=== PATIENT | male | born 1970 | race African-American/Black ===

== ENCOUNTER 2018-11-02 20:51 | Inpatient (IN) | payer OTHER ==
[2018-11-02 21:26] LABS: Urine Blood NEGATIVE (NEG); Urine Glucose NEGATIVE (NEG); Urine Protein NEGATIVE (NEG); Urine pH 8.5 (5.0-7.0)
[2018-11-02] MEDS ORDERED: LIDOCAINE VISCOUS 2% SOLN 15 ML UDC ONE (21:30)
[2018-11-02] MEDS ORDERED: MEPERIDINE HCL 25 MG/0.5 ML ONE ×2 (21:30→23:49)
[2018-11-02] MEDS ORDERED: MAGNE/ALUM HYDROXD 30 ML UCUP ONE (21:30)
[2018-11-02] MEDS ORDERED: ONDANSETRON 4 MG/2 ML VIAL ONE (21:30)
[2018-11-02 21:33] LABS: Absolute Lymphocytes (CBC) 1.2 K/uL (0.7-4.9); Basophils % 0.2 % (0-1.3); Lymphocytes % 13.1 % (15.3-44.8); MPV 9.6 fL (7.6-11.3); RBC Red Blood Cell Count 4.92 M/uL (4.33-5.43)
--- NOTE | 2018-11-02 21:48 | RAD REPORT ---
EXAM DESCRIPTION: RAD - Chest Single View - 11/02/2018 9:26 pm CLINICAL HISTORY: Chest pain, abdominal pain COMPARISON: None. TECHNIQUE: AP portable chest image was obtained 2117 hours . FINDINGS: Lungs are clear. Heart and vasculature are normal. No measurable pleural effusion and no p neumothorax. No acute bony abnormality seen. No acute aortic findings suspected. IMPRESSION: No acute cardiopulmonary process.
[2018-11-02 21:53] LABS: ALT/SGPT 26 U/L (12-78); AST/SGOT 11 U/L (15-37); Albumin 3.7 g/dL (3.4-5.0); Alkaline Phosphatase 50 U/L (45-117); BUN Blood Urea Nitrogen 9 mg/dL (7-18); Bicarbonate 24 mmol/L (21-32); Bilirubin Direct 0.2 mg/dL (0-0.2); Bilirubin Total 0.9 mg/dL (0.2-1.0); Glucose Level 96 mg/dL (74-106); Lipase 115 U/L (73-393); Potassium 3.2 mmol/L (3.5-5.1); Protein, Total 7.9 g/dL (6.4-8.2); Sodium Level 142 mmol/L (136-145); Troponin (Emerg Dept Use Only) < 0.02 ng/mL (0.0-0.045)
--- NOTE | 2018-11-02 23:14 | EDPHYS ---
Physician Documentation [facility] Name: Phong Simmons Age: 48 yrs Sex: Male : 1970 Arrival Date: 11/02/2018 Time: 20:53 Bed 18 Private MD: ED Physician Mark Anthony Hunt HPI: 11/02 21:06 This 48 yrs old Black Male presents to ER via Unassigned with complaints of Chest Pain, rn Abdominal Cramping. 21:06 The patient presents with abdominal pain in the lower abdomen. Onset: The rn symptoms/episode began/occurred yesterday. The symptoms do not radiate. Associated signs and symptoms: Pertinent positives: nausea and vomiting, diarrhea, Pertinent negatives: blood in stools, fever. The symptoms are described as achy, crampy. Modifying factors: The symptoms are alleviated by nothing, the symptoms are aggravated by touching the area. Severity of pain: At its worst the pain was moderate in the emergency department the pain is unchanged. The patient has experienced a previous episode. Reports abd cramping with vomiting and diarrhea that began yesterday, for last 2 hours began with substernal chest pressure, non-radiating, no diaphoresis, no previous lung or heart problems. States abdomen is bothering him more than chest. . Historical: - Allergies: 21:10 No Known Allergies; aj1 - Home Meds: 21:10 Nexium Oral as needed [Active]; losartan oral oral [Active]; aj1 - PMHx: 21:10 Hypertension; GERD; Diverticulitis; aj1 - PSHx: 21:10 Knee surgery; surgery on esophagus; aj1 - Immunization history:: Flu vaccine is up to date. - Social history:: Smoking status: Patient/guardian denies using tobacco. - Family history:: not pertinent. - Ebola Screening: : Patient denies travel to an Ebola-affected area in the 21 days before illness onset. - Hospitalizations: : No recent hospitalization is reported. ROS: 21:06 Constitutional: Negative for fever, chills, and weight loss, Eyes: Negative for injury, rn pain, redness, and discharge, Neck: Negative for injury, pain, and swelling, Cardiovascular: Negative for palpitations, and edema, Respiratory: Negative for shortness of breath, cough, wheezing, and pleuritic chest pain, Abdomen/GI: Negative for constipation MS/Extremity: Negative for injury and deformity, Skin: Negative for injury, rash, and discoloration, Neuro: Negative for headache, weakness, numbness, tingling, and seizure. Exam: 21:06 Constitutional: This is a well developed, well nourished patient who is awake, alert, rn and in no acute distress. Head/Face: Normocephalic, atraumatic. Eyes: Pupils equal round and reactive to light, extra-ocular motions intact. Lids and lashes normal. Conjunctiva and sclera are non-icteric and not injected. Cornea within normal limits. Periorbital areas with no swelling, redness, or edema. Cardiovascular: Regular rate and rhythm. No pulse deficits. Respiratory: Lungs have equal breath sounds bilaterally, clear to auscultation. No increased work of breathing, no retractions or nasal flaring. Abdomen/GI: soft, + LLQ tenderness, no rebound MS/ Extremity: Pulses equal, no cyanosis. Neurovascular intact. Full, normal range of motion. Equal circumference. Neuro: Awake and alert, GCS 15, oriented to person, place, time, and situation. Cranial nerves II-XII grossly intact. Motor strength 5/5 in all extremities. Sensory grossly intact. Cerebellar exam normal. Vital Signs: 21:10 BP 165 / 102; Pulse 81; Resp 14; Pulse Ox 100% on R/A; Weight 129.27 kg (R); Height 6 aj1 ft. 4 in. (193.04 cm) (R); Pain 9/10; 22:15 BP 143 / 73; Pulse 85; Resp 16; Temp 98; Pulse Ox 99% ; Pain 4/10; rr5 23:00 BP 151 / 87; Pulse 80; Resp 17; Pulse Ox 99% on R/A; rr5 11/03 00:00 BP 142 / 70; Pulse 70; Resp 17; Pulse Ox 98% ; rr5 01:00 BP 133 / 76; Pulse 79; Resp 19; Pulse Ox 99% ; rr5 11/02 21:10 Body Mass Index 34.69 (129.27 kg, 193.04 cm) aj1 MDM: 11/02 21:00 Patient medically screened. rn 23:10 Differential diagnosis: diverticulitis. Data reviewed: vital signs, nurses notes, metallurgical lab technician test result(s), radiologic studies, CT scan, and as a result, I will admit patient. Counseling: I had a detailed discussion with the patient and/or guardian regarding: the historical points, exam findings, and any diagnostic results supporting the discharge/admit diagnosis, radiology results, the need for further work-up and treatment in the hospital. Response to treatment: the patient's symptoms have mildly improved after treatment, and as a result, I will admit patient. Admission orders: after a detailed discussion of the patient's condition and case, the admit orders are written by me. ED course: Pt with microperforation with diverticulitis, no indication for emergent surgery, will admit with IV abx, and obtain surgical consultation. . 11/02 21:05 Order name: Basic Metabolic Panel; Complete Time: 21:56 11/02 21:05 Order name: CBC with Diff; Complete Time: 21:38 11/02 21:05 Order name: Hepatic Function; Complete Time: 21:56 11/02 21:05 Order name: Lipase; Complete Time: 21:56 11/02 21:05 Order name: Troponin (emerg Dept Use Only); Complete Time: 21:56 11/02 21:25 Order name: Urine Dipstick--Ancillary (enter results); Complete Time: 21:38 cm6 11/02 21:05 Order name: EKG; Complete Time: 21:06 rn 11/02 21:05 Order name: XRAY Chest (1 view); Complete Time: 21:56 11/02 21:05 Order name: CT Abd/Pelvis - IV Contrast Only rn 11/02 21:05 Order name: IV Saline Lock; Complete Time: 21:27 rn 11/02 21:05 Order name: Labs collected and sent; Complete Time: 21:20 rn 11/02 21:05 Order name: EKG - Nurse/Tech; Complete Time: 21:20 rn Administered Medications: 21:20 Drug: GI Cocktail without - (Maalox Suspension 30 ml, Lidocaine Liquid 2 % 15 rr5 ml) Route: PO; 22:20 Follow up: Response: No adverse reaction rr5 21:21 Drug: Zofran 4 mg Route: IVP; Site: right antecubital; rr5 22:20 Follow up: Response: No adverse reaction rr5 21:23 Drug: Demerol 25 mg Route: IVP; Site: right antecubital; rr5 22:20 Follow up: Response: No adverse reaction; Marked relief of symptoms rr5 23:10 Drug: Zosyn 3.375 grams Route: IVPB; Infused Over: 60 mins; Site: right antecubital; rr5 11/03 00:10 Follow up: Response: No adverse reaction; IV Status: Completed infusion; IV Intake: rr5 100ml 11/02 23:35 Drug: Demerol 25 mg Route: IVP; Site: right antecubital; rr5 11/03 00:35 Follow up: Response: No adverse reaction rr5 Disposition: 11/02/18 23:13 Hospitalization ordered by Bakari Stauffer for Inpatient Admission. Preliminary diagnosis is Diverticulitis of large intestine with microperforation, no abscess. - Bed requested for Telemetry/MedSurg (Inpatient). - Status is Inpatient Admission. rr5 - Condition is Stable. - Problem is new. - Symptoms have improved. UTI on Admission? No Signatures: Dispatcher [employer] EDIN Mary Kay Smith RN RN aj1 Mark Anthony Hunt MD MD rn Garcia, Cindy, RN RN cg Roque, Raymond, RN RN rr5 Corrections: (The following items were deleted from the chart) 00:28 11/02 23:13 Hospitalization Ordered by Bakari Stauffer DO for Inpatient Admission. cg Preliminary diagnosis is Diverticulitis of large intestine with microperforation, no abscess. Bed requested for Telemetry/MedSurg (Inpatient). Status is Inpatient Admission. Condition is Stable. Problem is new. Symptoms have improved. UTI on Admission? No. rn 11/03 01:22 00:28 11/02/2018 23:13 Hospitalization Ordered by Bakari Stauffer DO for Inpatient rr5 Admission. Preliminary diagnosis is Diverticulitis of large intestine with microperforation, no abscess. Bed requested for Telemetry/MedSurg (Inpatient). Status is Inpatient Admission. Condition is Stable. Problem is new. Symptoms have improved. UTI on Admission? No. cg
--- NOTE | 2018-11-02 23:14 | ER ---
Nurse's Notes [facility] Name: Phong Simmons Age: 48 yrs Sex: Male : 1970 Arrival Date: 11/02/2018 Time: 20:53 Bed 18 Private MD: Diagnosis: Diverticulitis of large intestine with microperforation, no abscess Presentation: 11/02 21:07 Presenting complaint: Patient states: Abdominal pain that started last night and chest aj1 pain that started 2 hours ago. Patient reports that he has a history of diverticulitis. Reports having diarrhea and vomiting yesterday but none today. Denies fever, denies blood in stool. Patient reports substernal chest pain, that does not radiate, describes it as someone "pressing" . Reports that his abdominal pain is worse than the chest pain. Transition of care: patient was not received from another setting of care. Onset of symptoms was October 2018. Risk Assessment: Do you want to hurt yourself or someone else? Patient reports no desire to harm self or others. Initial Sepsis Screen: Does the patient meet any 2 criteria? No. Patient's initial sepsis screen is negative. Does the patient have a suspected source of infection? No. Patient's initial sepsis screen is negative. Care prior to arrival: None. 21:07 Method Of Arrival: Ambulatory aj1 21:07 Acuity: ED 3 aj1 Triage Assessment: 21:10 General: Appears in no apparent distress. uncomfortable, Behavior is calm, cooperative, aj1 appropriate for age. Pain: Complains of pain in mid-sternal area and umbilical area Pain does not radiate. Pain currently is 9 out of 10 on a pain scale. Neuro: Level of Consciousness is awake, alert, obeys commands, Oriented to person, place, time, situation. Cardiovascular: Patient's skin is warm and dry. Respiratory: Airway is patent Respiratory effort is even, unlabored, Respiratory pattern is regular, symmetrical. Historical: - Allergies: 21:10 No Known Allergies; aj1 - Home Meds: 21:10 Nexium Oral as needed [Active]; losartan oral oral [Active]; aj1 - PMHx: 21:10 Hypertension; GERD; Diverticulitis; aj1 - PSHx: 21:10 Knee surgery; surgery on esophagus; aj1 - Immunization history:: Flu vaccine is up to date. - Social history:: Smoking status: Patient/guardian denies using tobacco. - Family history:: not pertinent. - Ebola Screening: : Patient denies travel to an Ebola-affected area in the 21 days before illness onset. - Hospitalizations: : No recent hospitalization is reported. Screenin:10 Abuse screen: Denies threats or abuse. Denies injuries from another. Nutritional rr5 screening: No deficits noted. Tuberculosis screening: No symptoms or risk factors identified. Fall Risk IV access (20 points). Total Melendez Fall Scale indicates No Risk (0-24 pts). Assessment: 21:10 General: Appears in no apparent distress. uncomfortable, Behavior is calm, cooperative, rr5 appropriate for age. 21:10 Pain: Complains of pain in left lower quadrant Pain does not radiate. Pain currently is rr5 8 out of 10 on a pain scale. Quality of pain is described as aching, Pain began gradually, Is intermittent. Neuro: Level of Consciousness is awake, alert, Oriented to person, place, time, situation, Appropriate for age. Cardiovascular: Reports chest pain, Capillary refill < 3 seconds Patient's skin is warm and dry. Respiratory: Airway is patent Respiratory effort is even, unlabored, Respiratory pattern is regular, symmetrical. GI: Abdomen is round non-distended, Reports lower abdominal pain, vomiting. : No signs and/or symptoms were reported regarding the genitourinary system. EENT: No signs and/or symptoms were reported regarding the EENT system. Derm: Skin is intact, Skin temperature is warm. Musculoskeletal: Capillary refill < 3 seconds, Range of motion: intact in all extremities. 22:10 Reassessment: Patient appears in no apparent distress at this time. Patient is alert, rr5 oriented x 3, equal unlabored respirations, skin warm/dry/pink. Patient states feeling better. Patient states symptoms have improved. 23:00 Reassessment: Patient appears in no apparent distress at this time. Patient is alert, rr5 oriented x 3, equal unlabored respirations, skin warm/dry/pink. reassess by ED provider advised for admission. patient agreed for the plan of care. Patient states feeling better. Patient states symptoms have improved. 23:30 Reassessment: Patient appears in no apparent distress at this time. complaint that the rr5 abdominal pain is coming back. ED provider aware with order made and carried out. 23:30 Pain: Complains of pain in left lower quadrant Pain currently is 6 out of 10 on a pain rr5 scale. 23:40 Reassessment: Dr. bautista seen and examined at bedside. rr5 11/03 00:55 Reassessment: Patient appears in no apparent distress at this time. Patient is alert, rr5 oriented x 3, equal unlabored respirations, skin warm/dry/pink. eyes closed breathing spontaneously at room air. no complaints made. Patient states feeling better. Patient states symptoms have improved. 00:55 Pain: Pain currently is 4 out of 10 on a pain scale. rr5 Vital Signs: 11/02 21:10 BP 165 / 102; Pulse 81; Resp 14; Pulse Ox 100% on R/A; Weight 129.27 kg (R); Height 6 aj1 ft. 4 in. (193.04 cm) (R); Pain 9/10; 22:15 BP 143 / 73; Pulse 85; Resp 16; Temp 98; Pulse Ox 99% ; Pain 4/10; rr5 23:00 BP 151 / 87; Pulse 80; Resp 17; Pulse Ox 99% on R/A; rr5 11/03 00:00 BP 142 / 70; Pulse 70; Resp 17; Pulse Ox 98% ; rr5 01:00 BP 133 / 76; Pulse 79; Resp 19; Pulse Ox 99% ; rr5 11/02 21:10 Body Mass Index 34.69 (129.27 kg, 193.04 cm) aj1 ED Course: 11/02 20:53 Patient arrived in ED. mr 20:58 Lee Beavers, RN is Primary Nurse. rr5 21:00 Mark Anthony Hunt MD is Attending Physician. rn 21:09 Triage completed. aj1 21:10 Radiology exam delayed due to lab results not completed at this time. (BUN/Creatinine). vm2 21:10 Arm band placed on Patient placed in an exam room. aj1 21:18 Inserted saline lock: 20 gauge in right antecubital area, using aseptic technique. jb5 Blood collected. 21:20 Patient has correct armband on for positive identification. Placed in gown. Bed in low rr5 position. Call light in reach. Side rails up X2. pvc monitor on. Pulse ox on. NIBP on. 21:20 Lipase Sent. jb5 21:20 Hepatic Function Sent. jb5 21:20 CBC with Diff Sent. jb5 21:20 Basic Metabolic Panel Sent. jb5 21:21 XRAY Chest (1 view) In Process Unspecified. EDMS 21:[address] via wheelchair. vm2 22:22 CT completed. Patient tolerated procedure well. Patient moved back from CT. vm2 22:29 CT Abd/Pelvis - IV Contrast Only In Process Unspecified. EDMS 23:11 Bakari Bautista DO is Hospitalizing Provider. rn 11/03 01:07 No provider procedures requiring assistance completed. Patient admitted, IV remains in rr5 place. intact, No redness/swelling at site. Patient maintains SpO2 saturation greater than 95% on room air. Administered Medications: 11/02 21:20 Drug: GI Cocktail without - (Maalox Suspension 30 ml, Lidocaine Liquid 2 % 15 rr5 ml) Route: PO; 22:20 Follow up: Response: No adverse reaction rr5 21:21 Drug: Zofran 4 mg Route: IVP; Site: right antecubital; rr5 22:20 Follow up: Response: No adverse reaction rr5 21:23 Drug: Demerol 25 mg Route: IVP; Site: right antecubital; rr5 22:20 Follow up: Response: No adverse reaction; Marked relief of symptoms rr5 23:10 Drug: Zosyn 3.375 grams Route: IVPB; Infused Over: 60 mins; Site: right antecubital; rr5 11/03 00:10 Follow up: Response: No adverse reaction; IV Status: Completed infusion; IV Intake: rr5 100ml 11/02 23:35 Drug: Demerol 25 mg Route: IVP; Site: right antecubital; rr5 11/03 00:35 Follow up: Response: No adverse reaction rr5 Intake: 00:10 IV: 100ml; Total: 100ml. rr5 Outcome: 11/02 23:13 Decision to Hospitalize by Provider. rn 11/03 01:06 Admitted to Tele accompanied by nurse, via stretcher, room 412, with chart, Report rr5 called to vinh Condition: stable Instructed on the need for admit. 01:22 Patient left the ED. rr5 Signatures: Dispatcher [employer] Mary Kay Clemons RN RN hang1 Kayla Ronquillo Roman, MD MD rn Fran, Katie 5 Dolores [facility] Lee Beavers RN RN rr5
[2018-11-02] MEDS ORDERED: PIPER/TAZO/NS 3.375gm 3.375 GM/100 ML BAG ONE (23:18)
--- NOTE | 2018-11-03 00:37 | P.HP ---
Certification for Inpatient Patient admitted to: Inpatient With expected LOS: >2 Midnights Patient will require the following post-hospital care: None Practitioner: I am a practitioner with admitting privileges, knowledge of patient current condition, hospital course, and medical plan of care. Services: Services provided to patient in accordance with Admission requirements found in Title 42 Section 412.3 of the Code of Federal Regulations Patient History Date of Service: 11/03/18 Primary Care Provider: Dr. Wilma Ferrell([place], [place]) Reason for admission: Left lower quadrant abdominal pain History of Present Illness: 48-year-old male presented to the emergency room with left lower quadrant abdominal pain. Patient has been reporting left lower quadrant abdominal pain over the last week. It got better earlier in the week. Then over the last 24 hr the pain increased. He rated the pain about a 9/10. It was associated with some diarrhea but this has resolved. He reported some nausea but no vomiting. He denied any fever, chills. No significant chest pain noted. The patient has history of diverticulitis in the past. He has not had a colonoscopy. He is originally from [place]. 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 He came to this hospital due to the long ER wait in the [facility]. In the ER patient evaluated. Pain stabilize. White count 9.4, hemoglobin 14. Sodium 142, potassium 3.2. BUN of 9, creatinine 1.1 with a GFR 86. Glucose 96. Urinalysis unremarkable. Chest x-ray unremarkable. CT scan of the abdomen showed acute proximal sigmoid diverticulitis with suspected contained micro perforation. No free air noted. No significant abscess or obstruction noted. 3 somewhat ill-defined lesions in the liver were nonspecific likely hemangiomas. Patient was given IV antibiotic therapy and medication for pain. Patient was admitted for further evaluation and treatment. When I saw the patient ER, pain under control. He is without any significant distress. Patient does not appear septic appearing. Patient reports history of diverticulitis. He has not had a colonoscopy in the past. He was to have scheduled this several months ago. Patient with history of hypertension and GERD. He is supposed to be taking medication for blood pressure but has not been using it, as he feels his blood pressures are controlled without medication at this time. Home medications list reviewed: Yes - Past Medical/Surgical History Diabetic: No -: Hypertension -: GERD -: History of diverticulitis -: Right knee surgery Psychosocial/ Personal History: Patient is . He has 4 children. He works as a sports specialist. - Family History Mother -: Other (see notes) (Hypothyroidism) Father -: Cancer (Lung cancer with mets to the brain) - Social History Smoking Status: Never smoker Alcohol use: Yes CD- Drugs: No Caffeine use: Yes Place of Residence: Home Review of Systems General: As per HPI Eyes: Unremarkable ENT: Unremarkable Respiratory: Unremarkable Cardiovascular: Unremarkable Gastrointestinal: Nausea, Vomiting, Abdominal Pain, As per HPI Genitourinary: Unremarkable Musculoskeletal: Unremarkable Integumentary: Unremarkable Neurological: Unremarkable Lymphatics: Unremarkable Physical Examination - Physical Exam General: Alert, In no apparent distress, Oriented x3, Cooperative HEENT: Atraumatic, Normocephalic, PERRLA, Mucous membr. moist/pink Neck: Supple, No Thyromegaly Respiratory: Clear to auscultation bilaterally, Normal air movement Cardiovascular: Normal pulses, Regular rate/rhythm Gastrointestinal: Hypoactive, Soft and benign, Non-distended, No masses, No rebound, No guarding, Tenderness (Minimal pain to the left lower quadrant) Musculoskeletal: No erythema, No tenderness, No warmth Integumentary: No tenderness/swelling, No erythema, No warmth, No cyanosis Neurological: Normal speech, Normal strength at 5/5 x4 extr, Normal tone, Normal affect - Studies Laboratory Data (last 24 hrs) 11/02/18 21:13: WBC 9.4, Hgb 14.7, Hct 43.0, Plt Count 170 11/02/18 21:13: Sodium 142, Potassium 3.2 L, BUN 9, Creatinine 1.10, Glucose 96 , Total Bilirubin 0.9, AST 11 L, ALT 26, Alkaline Phosphatase 50, Lipase 115 Assessment and Plan - Plan Impression: Left lower quadrant abdominal pain secondary to acute proximal sigmoid diverticulitis with suspected contained micro perforation with history of diverticulitis Hypertension GERD 3 ill-defined lesions nonspecific likely hemangiomas Plan: Left lower quadrant abdominal pain secondary to acute proximal sigmoid diverticulitis with suspected contained micro perforation with history of diverticulitis: Patient will be admitted for further evaluation and treatment. Will keep the patient NPO. Will start IV Cipro and Flagyl. Will continue with IV fluids at this time. Will provide medication for pain and nausea. Surgery has been consulted. Await further recommendation. If no surgical intervention is required and his clinical condition improves then his diet can be advanced slowly. Patient will likely require 2 weeks of oral antibiotic therapy at discharge. Patient will likely require repeat CT scan in 2-4 weeks with follow up with Colorectal surgery and possibly GI. Patient plans to follow up in [place] where he lives. Will continue DVT prophylaxis-Lovenox. Will continue to monitor closely. Hypertension: Patient home medications include losartan hydrochlorothiazide 25/ 12.5 mg and Norvasc 5 mg daily. He has not been using his medication as he feels his blood pressures are well controlled off medication. Will monitor closely. At this time will provide IV medication if blood pressure systolic significantly elevated. GERD: Will continue with IV Pepcid at this time. 3 ill-defined nonspecific liver lesions likely hemangiomas: Incidental finding noted. Will recommend MRI as an outpatient to further evaluate with follow up with GI. Discharge Plan: Home Plan to discharge in: Greater than 2 days - Advance Directives Does patient have a Living Will: No Does patient have a Durable POA for Healthcare: No - Code Status/Comfort Care Code Status Assessed: Yes (Patient is full code) Time Spent Managing Pts Care (In Minutes): 55
[2018-11-03] MEDS ORDERED: ACETAMINOPHEN 650MG/RECT SUPP RECT PRN (01:13)
[2018-11-03] MEDS ORDERED: HYDRALAZINE HCL 20 MG/ML VIAL IV PRN (01:13)
[2018-11-03] MEDS ORDERED: ACETAMINOPHEN 500 MG TAB PO PRN (01:13)
[2018-11-03] MEDS ORDERED: POTASSIUM CL SA 10 MEQ TAB PO ONE (01:35)
[2018-11-03] MEDS: D5 0.9 NS 1,000 ML IV SCH ×3 (02:05→20:17)
[2018-11-03] MEDS: METRONIDAZOLE 500mg IVPB 500 MG/100 ML BAG IV SCH ×3 (02:05→16:17)
[2018-11-03 02:06] VITALS: BMI 37.2
[2018-11-03] MEDS: MORPHINE 2 MG/ML SYR IV PRN ×2 (02:09→19:06)
[2018-11-03] MEDS: ONDANSETRON 4 MG/2 ML VIAL IV PRN ×2 (02:09→20:17)
[2018-11-03] MEDS: KCL 20 MEQ/100 mL IVPB 20 MEQ/100 ML BAG IV SCH ×3 (07:23→22:06)
[2018-11-03] MEDS: CIPROFLOXACIN 400mg IV 400 MG/200 ML BAG IV SCH ×2 (08:51→20:17)
[2018-11-03] MEDS: ENOXAPARIN 40 MG/0.4 ML SQ SCH (08:52)
[2018-11-03] MEDS: FAMOTIDINE 20 MG/2 ML VIAL IV SCH ×2 (09:05→20:17)
--- NOTE | 2018-11-03 12:06 | RAD REPORT ---
EXAM DESCRIPTION: CT - Abdomen Pelvis W Contrast - 11/03/2018 4:59 am CLINICAL HISTORY: 48 years Male ABD PAIN TECHNIQUE: Contiguous axial images obtained through the abdomen and pelvis following intravenous con trast administration. Coronal and sagittal reformatted images provided. This CT exam was performed according to our departmental dose-optimization program, which includes on e or more of the following dose reduction techniques: automated exposure control, adjustment of the m A and/or kV according to patient size, and/or use of iterative reconstruction technique. COMPARISON: No prior exams provided for comparison. FINDINGS: There are acute inflammatory changes in the left lower quadrant , centered at an inflamed proximal sigmoid diverticulum. Probable contained microperforation with punctate gas adjacent to the inflamed diverticulum. No other intraperitoneal air. Trace free fluid in the pelvis. There is diffuse sigmoid diverticulosis. No other bowel inflammation. No bowel obstruction or abscess . Minimal bibasilar atelectasis. There are three somewhat ill-defined foci of low attenuation in the li rosio, the largest measuring 3.2 cm and the left lobe. There does appear to be slight progressive enhan cement of these lesions. The liver is not cirrhotic. The biliary tree, gallbladder, pancreas, spleen, adrenal glands, left kidney, and urinary bladder are normal. Right renal cysts. No abdominal aortic aneurysm or dissection. No acute osseous abnormality. IMPRESSION: Acute proximal sigmoid diverticulitis with a suspected contained microperforation. No fr ee intraperitoneal air. Trace free fluid in the pelvis without abscess. No bowel obstruction. Three somewhat ill-defined lesions in the liver are nonspecific. While these may represent hemangioma s, they should be further evaluated with multiphase contrast-enhanced MRI . Electronically signed by: Kaila Valenzuela MD 11/02/2018 10:46 PM CDT Due to temporary technical issues with the PACS/Fluency reporting system, reports are being signed by the in house radiologist as a courtesy to ensure prompt reporting. The interpreting radiologist is f ully responsible for the content of the report.
--- NOTE | 2018-11-03 14:26 | PN ---
Date of Progress Note: 11/03/2018 Subjective: Patient is seen and examined. Chart reviewed and case discussed with RN and with Dr. Raymond castro. Explained the patient that currently he needs to be n.p.o. He is on D5W, getting some calor ies. Medications: List reviewed. Physical Examination: Vital Signs: Temperature 98.7, heart rate 75, blood pressure 153/78, respirations 18, O2 of 96% on r oom air. General: Awake, alert, and oriented x3, in some mild distress, obese male, somewhat ill-appearing. CV: S1, S2. Regular rate and rhythm. Peripheral pulses present. Respiratory: Moving air well bilaterally. No wheezing or stridor. No use of accessory muscles. Gastrointestinal: Abdomen has tenderness to palpation. No rebound or guarding. No rigidity. Mildl y distended. Hypoactive bowel sounds. Extremities: No clubbing, cyanosis, or edema. Neuro: Cranial nerves 2 through 12 intact grossly. No focal neurological deficits. Speech is salome l. Laboratory Data: Potassium is 3.2. Blood cultures are pending. Assessment: A 48-year-old male with. 1.Acute sigmoid diverticulitis with suspected contained microperforation. We will continue with con servative treatment for now with IV antibiotics. No surgical indication at this time per Dr. Cheryl deluna. The patient to be kept n.p.o. to prevent further degradation of the perforation. Continue with D 5 half NS. Good pain control. The patient will need outpatient GI workup and colonoscopy and possib le resection of that segment of the colon if he has recurrent infections. 2.Left lower quadrant abdominal pain secondary to above, improving. 3.Essential hypertension, not well controlled. The patient has not been taking his medications. We will continue with p.r.n. medications as he is n.p.o. at this time. 4.Gastroesophageal reflux disease without esophagitis. We will continue PPI. 5.Liver hemangiomas. CT scan showed 3 ill-defined lesions, which were nonspecific. The patient laura l need repeat imaging and possible further workup to elucidate these lesions. Would recommend MRI as an outpatient and to follow up with GI. 6.Obesity, BMI 37.2. 7.Hypokalemia. We will replace and monitor. Plan: Continue conservative treatment. Likely start on clear liquids. If continues to improve in t he next 24 hours and discharge the next 48 to 72 hours depending on clinical response. /MODEdward Voice ID: [id number] Report ID: [id number]
--- NOTE | 2018-11-03 20:20 | RAD REPORT ---
EXAM DESCRIPTION: CT - Head Brain Wo Cont - 11/03/2018 8:07 pm CLINICAL HISTORY: headache and/confusion COMPARISON: None TECHNIQUE: Computed axial tomography of the head was obtained. IV contrast was not requested. All CT scans are performed using dose optimization technique as appropriate and may include automated exposure control or mA/KV adjustment according to patient size. FINDINGS: An intracranial bleed is not seen . The ventricles are normal in caliber. No extra-axial fluid collection is noted. Mild to moderate low-density areas within periventricular, deep and subcortical white matter likely r epresent ischemic changes secondary to small vessel disease. Fluid within the sinuses/ mastoids is not seen. IMPRESSION: No acute intracranial abnormality is seen. If patient's symptoms persist MRI of the bra in would be recommended.
[2018-11-03] MEDS: KETOROLAC 30 MG/ML INJ IV PRN (22:05)
[2018-11-04] MEDS: KCL 20 MEQ/100 mL IVPB 20 MEQ/100 ML BAG IV SCH (02:02)
[2018-11-04] MEDS: METRONIDAZOLE 500mg IVPB 500 MG/100 ML BAG IV SCH ×3 (02:02→17:09)
[2018-11-04 06:05] LABS: Absolute Lymphocytes (CBC) 1.1 K/uL (0.7-4.9); Basophils % 0.4 % (0-1.3); Hematocrit 39.3 % (39.6-49.0); Lymphocytes % 19.2 % (15.3-44.8); MPV 9.8 fL (7.6-11.3); RBC Red Blood Cell Count 4.46 M/uL (4.33-5.43)
[2018-11-04 06:19] LABS: BUN Blood Urea Nitrogen 9 mg/dL (7-18); Bicarbonate 24 mmol/L (21-32); Glucose Level 106 mg/dL (74-106); Magnesium 2.3 mg/dL (1.8-2.4); Potassium 3.7 mmol/L (3.5-5.1); Sodium Level 143 mmol/L (136-145)
--- NOTE | 2018-11-04 06:31 | EKG ---
Test Date: 2018-11-02 Test Time: 21:05:34 Stakeholder Manager: NIHARIKA MEASUREMENT RESULTS: Intervals: Rate: 75 MI: 164 QRSD: 100 QT: 416 QTc: 464 [place]: P: 26 MI: 164 QRS: -41 T: -13 INTERPRETIVE STATEMENTS: Normal sinus rhythm Left axis deviation Abnormal ECG No previous ECG available for comparison Electronically Signed On 11-04-18 06:30:57 CDT by Tone Yu
[2018-11-04] MEDS: D5 0.9 NS 1,000 ML IV SCH ×2 (06:47→16:49)
[2018-11-04] MEDS: CIPROFLOXACIN 400mg IV 400 MG/200 ML BAG IV SCH ×2 (08:52→19:58)
[2018-11-04] MEDS: FAMOTIDINE 20 MG/2 ML VIAL IV SCH ×2 (08:52→19:58)
[2018-11-04] MEDS: ENOXAPARIN 40 MG/0.4 ML SQ SCH (08:52)
[2018-11-04] MEDS: KETOROLAC 30 MG/ML INJ IV PRN (08:56)
--- NOTE | 2018-11-04 10:14 | P.CNS ---
Date of Consult: 11/03/18 Reason for Consult: sigmoid diverticulitis with perforation Primary Care Provider: Dr. Wilma Ferrell([place], [place]) Chief Complaint: Left lower quadrant abdominal pain Allergies No Known Allergies Allergy (Verified 11/03/18 03:29) Home medications list reviewed: Yes Home Medications: Amlodipine [Norvasc*] 5 mg PO DAILY 11/03/18 Esomeprazole Magnesium [Nexium] 20 mg PO DAILY PRN 11/03/18 Losartan/Hydrochlorothiazide [Losartan-Hctz 50-12.5 mg Tab] 1 tab PO DAILY 11/03 - Past Medical/Surgical History Diabetic: No -: Hypertension -: GERD -: History of diverticulitis -: Right knee surgery Psychosocial/ Personal History: Patient is . He has 4 children. He works as a sports specialist. - Family History Mother Medical History: Other (see notes) Father Medical History: Cancer - Social History Alcohol use: Yes CD- Drugs: No Caffeine use: Yes Place of Residence: Home Review of Systems General: Malaise Eyes: Unremarkable ENT: Unremarkable Respiratory: Unremarkable Cardiovascular: Unremarkable Gastrointestinal: Nausea, Abdominal Pain, Distention, Melena (no), Hematochezia (no), As per HPI Genitourinary: Unremarkable Musculoskeletal: Unremarkable Integumentary: Unremarkable Neurological: Unremarkable Physical Examination Temp Pulse Resp BP Pulse Ox 98.1 F 68 16 124/75 98 11/04/18 08:00 11/04/18 08:00 11/04/18 08:00 11/04/18 08:00 11/04/18 08:00 General: Alert, Oriented x3, Cooperative HEENT: PERRLA, EOMI, Sclerae nonicteric Neck: Supple Respiratory: Normal air movement Cardiovascular: No edema, Normal pulses Gastrointestinal: No rebound, Distended, Tenderness (LLQ), Guarding Musculoskeletal: No erythema, No tenderness, No warmth Integumentary: No rashes, No breakdown, No erythema, No warmth, No cyanosis Neurological: Normal speech REviewed with pt Imagings Data: reviewed with pt Conclusions/Impression: I explained BAR of immediate Exploratory laparotomy , bowel resection, possible ostomy vs elective bowel resection if microperforation remains contained. Continue IVF bowel rest oob Colonoscopy as outpatient once the diverticulitis improve. PT live out of town and he will check with his gastroenterologyst.
--- NOTE | 2018-11-04 13:39 | PN ---
Subjective: Patient is doing well, but denies any abdominal pain. Has not had any nausea or vomitin g. No bloody stools. Medications: List reviewed. Physical Examination: Vital Signs: Temperature 98.1, heart rate 68, blood pressure 124/75, respirations 16, O2 of 98% on r oom air. General: Awake, alert, oriented x3, not in any acute distress. Obese male. CV: S1, S2. No murmurs. Respiratory: Moving air well bilaterally. No wheezing. Gastrointestinal: Abdomen is soft. Minimal tenderness to palpation on the left lower quadrant. No rebound or guarding. No rigidity. Bowel so unds present. Extremities: No clubbing, cyanosis, or edema. Neurologic: Nonfocal. Laboratory Data: Sodium 143, potassium 3.7, chloride 111, CO2 of 24, BUN 9, creatinine 1.06, glucose 106, calcium 7.8, magnesium 2.3. WBC 6, H and H 13.5 and 39.3, platelets 163. Blood cultures, no g rowth to date. CT scan of the head shows no acute intracranial abnormality. Patient does have mild- to-moderate low-density areas within the periventricular, deep, and subcortical white matter, likely represent ischemic changes secondary to small-vessel disease. Assessment: A 48-year-old male with: 1.Acute sigmoid diverticulitis with suspected contained microperforation. No surgical intervention planned at this time. We will continue with conservative treatment for now. Continue IV antibiotics , IV fluids. Keep n.p.o. to prevent further worsening of perforation. Continue with pain control. Patient will need GI workup as an outpatient. 2.Left lower quadrant abdominal pain secondary to above, improved. 3.Essential hypertension, not well controlled. Continue with p.r.n. medications. Currently n.p.o. 4.Gastroesophageal reflux disease without esophagitis. Continue PPI. 5.Liver hemangiomas. Patient will need repeat imaging and further workup with GI as an outpatient i ncluding MRI of the abdomen. 6.Obesity, BMI 37.2. 7.Hypokalemia. We will replace and monitor. 8.Apparent confusion. Overnight, patient had episode of confusion and headache. This is likely due to the fact that he has been n.p.o. for the past several days. Head CT scan was done, which was neg ative for any acute changes. He does have small-vessel ischemic disease, which should be further nickolas luated as an outpatient with Neurology. Plan: We will discuss further with Dr. Olguin. Keep n.p.o. Likely, start on clear liquids in a.m . and discharge within the next 24 to 48 hours. /VIVI Voice ID: [id number] Report ID: [id number]
[2018-11-04] MEDS ORDERED: KCL 20 MEQ/100 mL IVPB 20 MEQ/100 ML BAG IV SCH (14:00)
[2018-11-05 00:28] VITALS: O2SAT 98
[2018-11-05] MEDS: METRONIDAZOLE 500mg IVPB 500 MG/100 ML BAG IV SCH ×2 (01:20→08:02)
[2018-11-05] MEDS: D5 0.9 NS 1,000 ML IV SCH ×2 (02:37→13:13)
[2018-11-05 06:08] LABS: Absolute Lymphocytes (CBC) 1.2 K/uL (0.7-4.9); Basophils % 0.8 % (0-1.3); Hematocrit 41.1 % (39.6-49.0); Lymphocytes % 28.1 % (15.3-44.8); MPV 9.7 fL (7.6-11.3); RBC Red Blood Cell Count 4.72 M/uL (4.33-5.43)
[2018-11-05 06:28] LABS: BUN Blood Urea Nitrogen 10 mg/dL (7-18); Bicarbonate 25 mmol/L (21-32); Glucose Level 87 mg/dL (74-106); Magnesium 2.4 mg/dL (1.8-2.4); Potassium 3.7 mmol/L (3.5-5.1); Sodium Level 142 mmol/L (136-145)
[2018-11-05] MEDS ORDERED: KCL 20 MEQ/100 mL IVPB 20 MEQ/100 ML BAG IV SCH (07:00)
[2018-11-05] MEDS: FAMOTIDINE 20 MG/2 ML VIAL IV SCH (08:01)
[2018-11-05] MEDS: CIPROFLOXACIN 400mg IV 400 MG/200 ML BAG IV SCH (08:01)
[2018-11-05] MEDS: ENOXAPARIN 40 MG/0.4 ML SQ SCH (08:01)
[2018-11-05] MEDS ORDERED: POTASSIUM CL SA 10 MEQ TAB PO ONE (11:00)
[2018-11-05 13:44] VITALS: BP 136/72; TEMP 98.2
--- NOTE | 2018-11-06 11:28 | DS ---
Date of Discharge: 11/05/2018 Consultants: Dr. Olguin with General Surgery. Procedures: None. Admitting Diagnoses: 1. Left lower quadrant abdominal pain. 2. Acute proximal sigmoid diverticulitis with suspected contained microperforation. 3. Essential hypertension. 4. Gastroesophageal reflux disease. 5. Ill-defined lesions in the liver, likely hemangiomas. 6. Obesity. Discharge Diagnoses: 1. Acute sigmoid diverticulitis with suspected contained microperforation, improved, tolerating diet. No surgical intervention. 2. Left lower quadrant abdominal pain secondary to above, resolved. 3. Essential hypertension, not well controlled, improved with treatment. 4. Gastroesophageal reflux disease without esophagitis. 5. Liver hemangiomas. Patient will need further imaging like an MRI as well as GI followup. 6. Obesity. 7. Hypokalemia, corrected. 8. Apparent confusion, resolved. Hospital Course: Patient is a 48-year-old male with past medical history of hypertension, GERD, history of diverticulitis, comes in with left lower quadrant abdominal pain. Patient is from out of town, in [facility] due to long ER waits in [facility]. Patient was found to have sigmoid diverticulitis with suspected contained microperforation. No free air was noted. Patient was started on IV antibiotics and IV fluids. Patient responded well to treatment. His white blood cell count remained normal. He did have multiple electrolyte abnormalities, which were corrected. He had mild hyperglycemia upon admission. However, this was likely related to acute phase reactant. His remainder of glucose has also been normal. He was counseled regarding compliance with his blood pressure medications. UA was negative. His CT scan also showed some incidental finding of hemangiomas, which need to be further worked up with GI with MRI of the abdomen. Patient also reported some confusion overnight. Head CT scan was done, which did not show any acute changes. 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 This has been present since . Patient was evaluated by surgeon, Dr. Olguin, who did not recommend any surgical intervention at this time. Patient was slowly started on liquid diet, which he tolerated and was advanced to GI soft. Patient did not have any difficulty tolerating his diet. His pain had resolved. He was able to ambulate without difficulty. He was afebrile. Patient was then cleared for discharge. He understands that he needs further workup and he will need to see GI once his diverticulitis has resolved. Acute episode has resolved for scope. He also need MRI of the abdomen to elucidate his liver lesions. He will also need to follow up with a colorectal surgeon. He will likely need resection of the portion of sigmoid that has had recurrent infection. Patient was then sent home in a stable condition. Activity: As tolerated. Diet: Heart healthy calorie-reduced diet. Followup: Follow up with PCP in 2-3 days. Establish care with GI in 2 weeks. Return to ER for worsening condition. Physical Examination: General: Awake, alert, oriented, obese CV: S1, S2. Respiratory: Moving air well bilaterally. Abdomen: Abdomen soft, nontender, nondistended. Positive bowel sounds. Extremities: No clubbing, cyanosis, or edema. Neurologic: Nonfocal. Total time spent discharging patient was 34 minutes. MCKENNA Voice ID: [id number] Report ID: [id number] MTDD
== END 2018-11-05 15:57 | disposition home or self-care (01) | DRG 392 ==
LOC: ER 20:51 → ERHOLD 11-03 00:49 → 4TH 11-03 01:09
PROVIDERS: ADMIT Family Medicine; ATTEND Family Medicine
DX: K57.20 Diverticulitis of large intestine with perforation and abscess without bleeding (principal); D18.09 Hemangioma of other sites; I10 Essential (primary) hypertension; I99.8 Other disorder of circulatory system; K21.9 Gastro-esophageal reflux disease without esophagitis; E87.6 Hypokalemia; R41.0 Disorientation, unspecified; E66.9 Obesity, unspecified; Z68.37 Body mass index [BMI] 37.0-37.9, adult
CPT/HCPCS: 36415; 70450; 71045; 74177; 80048; 80076; 81003; 82962; 83690; 83735; 84132; 84484; 85025; 87040; 93005; 96365; 96375; 99285; J0744; J1650; J2175; J2270; J2405; J2543; Q9967